=== PATIENT | male | born 1930 | race African-American/Black ===

== ENCOUNTER 2017-05-20 09:06 | Emergency (ER) | payer MEDICARE, BC ==
[~2017-05-20 09:06] MED LIST: ADVIL PO; ALEVE220 MG PO; ASAB PO; AUG875 PO; B12100T PO; GLUCCHONDR PO; LANTUS SC; LIPITOR20 PO; LORTABLIQ PO; P20 PO; PREND2 PO; PROMETHAZI6.25 MG/5 OR; TOPXL25 PO; TOPXL50 PO; VICODINTAB PO; [UNRECOGNIZED DRUG - OTHER] PO
== END 2017-05-20 12:20 | disposition home or self-care (01) ==
LOC: ER 09:06
PROC: 0H93XZZ Drainage of Left Ear Skin, External Approach (ICD-10-PCS; principal; 2017-05-20)
DX: H60.02 Abscess of left external ear (principal); Z87.891 Personal history of nicotine dependence; Z95.1 Presence of aortocoronary bypass graft; I12.9 Hypertensive chronic kidney disease with stage 1 through stage 4 chronic kidney disease, or unspecified chronic kidney disease; N18.9 Chronic kidney disease, unspecified; E11.22 Type 2 diabetes mellitus with diabetic chronic kidney disease; Z90.89 Acquired absence of other organs; Z79.899 Other long term (current) drug therapy; Z79.4 Long term (current) use of insulin
CPT/HCPCS: 87070; 87077; 87186; 87205; 99283